=== PATIENT | female | born 1955 | race Caucasian/White ===

== ENCOUNTER → 2017-08-21 | Day surgery (SDC) | payer OTHER ==
[2017-08-12 15:18] VITALS: Ht 160 cm; Wt 59.1 kg
[~2017-08-21] VITALS: Ht 160 cm; Wt 59.1 kg
[~2017-08-21] MED LIST: BORO3CAP PO; CHOL20007 PO; COPP1TAB PO; LIDOCAINE HCL 2% 2 ML VIAL (20MG/ML) ONE; MAGN400T6 PO; PROPOFOL IV EMULSION 10 MG/ML 20 ML VIAL ONE; SODIUM CHLORIDE 0.9% 500ML 500 ML IV ONE; UBIQ1CAP PO; VITA1CAP59 PO; VITACAP26 PO; VITAMIN PO; VITATAB19 PO; [UNRECOGNIZED DRUG - CODE] PO; [UNRECOGNIZED DRUG - CODE] PO
--- NOTE | 2017-08-21 14:03 | Endo History and Physical ---
History & Physical Date of Service: August 21, 2017. Chief Complaint: Screening Referring Physician: Angella History of Present Illness 62 yo CF who presents for screening colonoscopy. Past Surgical History Hx Cardiac Surgery: No Hx Internal Defibrillator: No Hx Pacemaker: No Hx Abdominal Surgery: Yes (APPY) Hx of Implantable Prosthesis: No Hx Cancer Surgery: No Hx Thoracic Surgery: No Hx Orthopedic: No Hx Urinary Tract Surgery: No Social History Smoking Status: Never Smoker Hx Substance Use: No Hx Alcohol Use: No Allergies Coded Allergies: No Known Allergies (Unverified , 08/12/17) Current Medications Reported Home Medications Medications Dose Route/Sig Max Daily Dose Days Date Category Vitamin C (Vitamins C & E) 1 Cap Cap 240 Mg PO DAILY 08/12/17 Reported Elite Zinc (Zinc) 15 Mg Cap 1 Tab PO DAILY 08/12/17 Reported [place] 3 Mg Cap 1 Tab PO DAILY 08/12/17 Reported Copper (Copper Gluconate) 2 Mg Tab 1 Tab PO DAILY 08/12/17 Reported Ubqh (Ubiquinol) 50 Mg Cap 1 Tab PO DAILY 08/12/17 Reported Mag-Ox (Magnesium Oxide) 400 Mg Tab 400 Mg PO DAILY 08/12/17 Reported [Vitamin Mk7] 45 Mcg PO Q2D 08/12/17 Reported Vitamin K2 & D3 45-2000 Mcg-Unit (Vitamin D & K) 1 Cap Cap 1 Tab PO DAILY 08/12/17 Reported Vitamin A (Vitamin A-Beta Carotene) 1 Tab Tab 1 Tab PO DAILY 08/12/17 Reported Vitamin D3 (Cholecalciferol) 2,000 Unit Tab 2 Tab PO DAILY 30 08/12/17 Reported Calcium Aspartate (Calcium) 75 Mg Tab 1 Tab PO DAILY 08/12/17 Reported Vital Signs Weight (Kilograms): 59.09 Height (Feet): 5 Height (Inches): 3 Date Time Temp Pulse Resp B/P (MAP) Pulse Ox O2 Delivery O2 Flow Rate FiO2 08/21/17 13:23 36.7 101 20 143/88 (106) 100 Room Air Physical Exam General Appearance: WD/WN, no apparent distress Respiratory/Chest: Auscultation: breath sounds normal Cardiovascular: Heart Auscultation: RRR Abdomen: Bowel Sounds: normal Inspection & Palpation: soft, non-distended, no tenderness, guarding & rebound Assessment and Plan Assessment: 62 yo CF who presents for screening colonoscopy. Plan: Proceed with colonoscopy
--- NOTE | 2017-08-21 14:38 | GI REPORT ---
Patient Name: Evelin Finley Procedure Date: 08/21/2017 1:13 PM Date of : 1955 Admit Type: Outpatient Age: 62 Gender: Female Attending MD: Nito Conley DO Procedure: Colonoscopy Providers: Nito Conley DO Referring MD: Alyce Perales Indications: Screening for colorectal malignant neoplasm Medicines: Monitored Anesthesia Care Complications: No immediate complications. Estimated Blood Loss: Estimated blood loss: none. Procedure: Pre-Anesthesia Assessment: - Prior to the procedure, a History and Physical was performed, and patient medications and allergies were reviewed. The patient's tolerance of previous anesthesia was also reviewed. The risks and benefits of the procedure and the sedation options and risks were discussed with the patient. All questions were answered, and informed consent was obtained. Prior Anticoagulants: The patient has taken no previous anticoagulant or antiplatelet agents. ASA Grade Assessment: II - A patient with mild systemic disease. After reviewing the risks and benefits, the patient was deemed in satisfactory condition to undergo the procedure. After I obtained informed consent, the scope was passed under direct vision. Throughout the procedure, the patient's blood pressure, pulse, and oxygen saturations were monitored continuously. The Scope was introduced through the anus and advanced to the terminal ileum. The colonoscopy was performed without difficulty. The patient tolerated the procedure well. The quality of the bowel preparation was good. The terminal ileum, ileocecal valve, appendiceal orifice, and rectum were photographed. Findings: The perianal and digital rectal examinations were normal. Multiple small-mouthed diverticula were found in the sigmoid colon. Non-bleeding internal hemorrhoids were found during retroflexion. The hemorrhoids were small. Impression: - Diverticulosis in the sigmoid colon. - Non-bleeding internal hemorrhoids. - No specimens collected. Recommendation: - Resume previous diet. - Continue present medications. - Repeat colonoscopy in 10 months for surveillance. - Return to primary care physician as previously scheduled. Nito Conley DO 08/21/2017 2:38:22 PM This report has been signed electronically. Note Initiated On: 08/21/2017 1:13 PM Number of Addenda: 0 I attest to the content of the Intraoperative Record and orders documented therein, exceptions below {[id number]}
--- NOTE | 2017-08-21 14:39 | Discharge Instructions ---
Endoscopy Patient Instructions Date / Procedure(s) Performed August 21, 2017. Colonoscopy Allergy Information Coded Allergies: No Known Allergies (Unverified , 08/12/17) Discharge Date / Findings August 21, 2017. Diverticulosis Internal hemorrhoids Medication Instructions OK to resume all medications today as prescribed Reported Home Medications Medications Dose Route/Sig Max Daily Dose Days Date Category Vitamin C (Vitamins C & E) 1 Cap Cap 240 Mg PO DAILY 08/12/17 Reported Elite Zinc (Zinc) 15 Mg Cap 1 Tab PO DAILY 08/12/17 Reported [place] 3 Mg Cap 1 Tab PO DAILY 08/12/17 Reported Copper (Copper Gluconate) 2 Mg Tab 1 Tab PO DAILY 08/12/17 Reported Ubqh (Ubiquinol) 50 Mg Cap 1 Tab PO DAILY 08/12/17 Reported Mag-Ox (Magnesium Oxide) 400 Mg Tab 400 Mg PO DAILY 08/12/17 Reported [Vitamin Mk7] 45 Mcg PO Q2D 08/12/17 Reported Vitamin K2 & D3 45-2000 Mcg-Unit (Vitamin D & K) 1 Cap Cap 1 Tab PO DAILY 08/12/17 Reported Vitamin A (Vitamin A-Beta Carotene) 1 Tab Tab 1 Tab PO DAILY 08/12/17 Reported Vitamin D3 (Cholecalciferol) 2,000 Unit Tab 2 Tab PO DAILY 30 08/12/17 Reported Calcium Aspartate (Calcium) 75 Mg Tab 1 Tab PO DAILY 08/12/17 Reported Provider Instructions Activity Restrictions - No exercising or heavy lifting for 24 hours. - Do not drink alcohol the day of the procedure. - Do not drive a car or operate machinery until the day after the procedure. - Do not make any important decisions or sign important papers in 24 hours after the procedure. Following Day: - Return to full activity which may include returning to work/school. Diet Start your diet with liquids and light foods (jello, soup, juice, toast). Then eat your usual diet if not nauseated. Treatment For Common After Affects For mild abdominal pain, bloating, or excessive gas: - Rest - Eat lightly - Lie on right side Follow-Up Information Follow-up with Angella as scheduled Anesthesia Information What You Should Know You have had a procedure that required some medicine to reduce anxiety and discomfort. This treatment is called moderate sedation. After receiving the treatment, you may be sleepy, but you will be able to breathe on your own. The effects of the treatment may last for several hours. Follow these instructions along with Activity/Diet recommendations noted above: * Do NOT do anything where dizziness or clumsiness would be dangerous. * Rest quietly at home today, then you can be up and about tomorrow. * Have a responsible person stay with you the rest of today. * You may have had an I.V. today. If so, you may take the dressing off later today. Recommendations Call your doctor if: * Trouble breathing * Continuous vomiting for more than 24 hours * Temperature above 101 degrees * Severe abdominal pain or bloating * Pain not relieved by pain medicine ordered * There is increased drainage or redness from any incision * A large amount of rectal bleeding greater than 2-3 tablespoons. (If you had a polyp/s removed or have hemorrhoids, a small amount of blood - from the rectum is to be expected.) * You have any unanswered questions or concerns. IN THE EVENT OF A SERIOUS EMERGENCY, GO TO THE NEAREST EMERGENCY ROOM Your discharge instructions were prepared by provider Nito Conley. Patient Instructions Signature Page Evelin Finley Patient (or Guardian) Signature/Date: I have read and understand the instructions given to me by my caregivers. Caregiver/RN/Doctor Signature/Date: The above-named patient and/or guardian has received patient instructions on this date. + Original Patient Signature Page (only) stays with chart. Please make copy for patient.
--- NOTE | 2017-08-21 15:00 | Anesthesiology Progress Note ---
Anesthesia Post Op Note Date & Time August 21, 2017 at 15:00 Vital Signs Pain Intensity: 0 Vital Signs Past 12 Hours Date Time Temp Pulse Resp B/P (MAP) Pulse Ox O2 Delivery O2 Flow Rate FiO2 08/21/17 14:35 84 16 104/59 (74) 100 Room Air 08/21/17 13:23 36.7 101 20 143/88 (106) 100 Room Air Notes Mental Status: alert / awake / arousable, participated in evaluation Pt Amnestic to Procedure: Yes Nausea / Vomiting: adequately controlled Pain: adequately controlled Airway Patency, RR, SpO2: stable & adequate BP & HR: stable & adequate Hydration State: stable & adequate Anesthetic Complications: no major complications apparent
[2017-08-21 15:05] VITALS: BP 134/71; PULSE 67; O2SAT 100
== END | disposition home or self-care (01) ==
LOC: C.GI 13:00
PROVIDERS: ATTEND Internal Medicine
DX: Z12.11 Encounter for screening for malignant neoplasm of colon (principal); Q82.8 Other specified congenital malformations of skin; K57.30 Diverticulosis of large intestine without perforation or abscess without bleeding; K64.8 Other hemorrhoids